=== PATIENT | female | born 1955 | race Caucasian/White ===

== ENCOUNTER 2017-06-26 12:14 | Emergency (ER) | payer BC ==
[~2017-06-26] VITALS: Ht 157.5 cm; Wt 61.0 kg
[2017-06-26] MEDS ORDERED: PROPARACAINE OPHTH 0.5%, 15ML RIGHTEYE ONE (13:00)
[2017-06-26] MEDS ORDERED: FLUORESCEIN OPHTHALMIC 1 MG STRIP EACHEYE ONE (13:00)
[2017-06-26] MEDS ORDERED: PLEASE ENTER ALLERGIES MC SCH ×2 (13:00)
[2017-06-26] MEDS ORDERED: PROPARACAINE OPHTH 0.5%, 15ML ONE (13:40)
[2017-06-26] MEDS ORDERED: FLUORESCEIN OPHTHALMIC 1 MG STRIP ONE (13:40)
[2017-06-26 14:20] LABS: HEMATOCRIT 43.7 % (34.6-47.8); HEMOGLOBIN 15.2 g/dL (11.7-16.4); WHITE BLOOD COUNT 6.4 x10^3/uL (3.4-10)
[2017-06-26] MEDS ORDERED: SODIUM CHLORIDE FLUSH 10ML SYR IVF ONE (14:30)
[2017-06-26 16:32] LABS: BLOOD UREA NITROGEN 9 mg/dL (7-18)
[2017-06-26] MEDS ORDERED: OMNIPAQUE 350 MG/ML, 100ML BOTTLE ONE (17:31)
[2017-06-26 20:50] VITALS: BP 146/87
== END 2017-06-26 20:52 | disposition home or self-care (01) ==
LOC: ED 15:12
DX: J39.2 Other diseases of pharynx (principal); R59.1 Generalized enlarged lymph nodes
CPT/HCPCS: 36415; 70487; 70491; 80048; 82040; 85025; 99285; Q9967

== ENCOUNTER 2017-07-04 07:37 | Inpatient (IN) | payer BC ==
[~2017-07-04] VITALS: Ht 157.5 cm; Wt 65.7 kg
[2017-07-04] MEDS ORDERED: HYDR-3237 PO (08:06)
[2017-07-04] MEDS ORDERED: LEVO112T4 PO (08:06)
[2017-07-04] MEDS ORDERED: LISI1TAB5 PO (08:06)
[2017-07-04] MEDS ORDERED: AMLO2.5T PO (08:06)
[2017-07-04] MEDS ORDERED: ONDA4TAB10 PO (08:06)
[2017-07-04 08:50] LABS: ASPARTATE AMINO TRANSFERASE 22 U/L (15-37); BLOOD UREA NITROGEN 9 mg/dL (7-18)
[2017-07-04 08:51] LABS: HEMATOCRIT 39.7 % (34.6-47.8); HEMOGLOBIN 14.2 g/dL (11.7-16.4); WHITE BLOOD COUNT 7.7 x10^3/uL (3.4-10)
[2017-07-04 09:04] LABS: IS PT STATUS REG ER OR PRE ER? YES
[2017-07-04 09:05] LABS: PATH.CAST-FLAG NOT PRESENT; SPERM-FLAG NOT PRESENT; XTAL-FLAG NOT PRESENT; YLC-FLAG NOT PRESENT
[2017-07-04] MEDS ORDERED: SODIUM CHLORIDE 0.9% 1,000 ML IV ONE ×2 (09:30→09:59)
[2017-07-04 09:55] LABS: SRC-FLAG NOT PRESENT
[2017-07-04] MEDS ORDERED: SODIUM CHLORIDE FLUSH 10ML SYR IVF PRN (10:00)
[2017-07-04] MEDS ORDERED: SODIUM CHLORIDE 0.9% 1,000 ML IV SCH (10:35)
[2017-07-04] MEDS ORDERED: POLYETHYLENE GLYCOL 17 GM PACKET PO PRN (11:00)
[2017-07-04] MEDS ORDERED: LABETALOL 5MG/ML, 20ML IVPush PRN (11:00)
[2017-07-04] MEDS ORDERED: ACETAMINOPHEN 325 MG TABLET PO PRN (11:00)
[2017-07-04] MEDS ORDERED: HYDROcodone/APAP 5/325 TABLET PO PRN (11:00)
[2017-07-04] MEDS ORDERED: TEMAZEPAM 15 MG CAPSULE PO PRN (11:00)
[2017-07-04] MEDS: ONDANSETRON 2MG/ML, 2ML IVPush PRN ×2 (14:22→20:47)
[2017-07-04] MEDS: ENOXAPARIN 40 MG/0.4 ML SQ SCH (16:42)
[2017-07-05] MEDS: SODIUM CHLORIDE 0.9% 1,000 ML IV SCH ×3 (03:45→22:30)
[2017-07-05 04:15] LABS: HEMATOCRIT 38.6 % (34.6-47.8); HEMOGLOBIN 13.3 g/dL (11.7-16.4); WHITE BLOOD COUNT 8.1 x10^3/uL (3.4-10)
[2017-07-05 04:26] LABS: BLOOD UREA NITROGEN 3 mg/dL (7-18)
[2017-07-05 04:27] LABS: ASPARTATE AMINO TRANSFERASE 18 U/L (15-37)
[2017-07-05] MEDS ORDERED: POTASSIUM CHLORIDE 20 MEQ TAB.ER.PRT PO ONE ×3 (05:00→13:30)
[2017-07-05] MEDS ORDERED: POTASSIUM CHLORIDE 20 MEQ in SODIUM CHLORIDE 0.9% 250 ML IV ONE (05:00)
[2017-07-05] MEDS: LEVOTHYROXINE 112 MCG TABLET PO SCH ×2 (08:15→08:46)
[2017-07-05] MEDS: SENNA/DOCUSATE TABLET PO SCH (08:15)
[2017-07-05] MEDS: AMLODIPINE 2.5 MG TABLET PO SCH (08:15)
[2017-07-05 08:25] LABS: BLOOD UREA NITROGEN 3 mg/dL (7-18)
[2017-07-05] MEDS ORDERED: POTASSIUM PHOSPHATE 44 MEQ in SODIUM CHLORIDE 0.9% 500 ML IV ONE (09:00)
[2017-07-05] MEDS ORDERED: MAGNESIUM SULFATE PMX 4GM/100M 100 ML IV ONE (09:00)
[2017-07-05] MEDS ORDERED: SODIUM CHLORIDE 0.9% 1,000 ML IV SCH ×2 (10:35)
[2017-07-05] MEDS: ENOXAPARIN 40 MG/0.4 ML SQ SCH (10:58)
[2017-07-05 12:25] LABS: BLOOD UREA NITROGEN 2 mg/dL (7-18)
[2017-07-05 16:22] LABS: BLOOD UREA NITROGEN 2 mg/dL (7-18)
[2017-07-05 20:34] LABS: BLOOD UREA NITROGEN 2 mg/dL (7-18)
[2017-07-06 00:30] LABS: BLOOD UREA NITROGEN 2 mg/dL (7-18)
[2017-07-06] MEDS: SODIUM CHLORIDE 0.9% 1,000 ML IV SCH ×3 (04:18→17:06)
[2017-07-06 04:45] LABS: BLOOD UREA NITROGEN 2 mg/dL (7-18)
[2017-07-06] MEDS ORDERED: POTASSIUM CHLORIDE 20 MEQ TAB.ER.PRT PO ONE (07:00)
[2017-07-06] MEDS: LEVOTHYROXINE 112 MCG TABLET PO SCH (08:13)
[2017-07-06] MEDS: SENNA/DOCUSATE TABLET PO SCH (08:13)
[2017-07-06 09:02] LABS: BLOOD UREA NITROGEN 2 mg/dL (7-18)
[2017-07-06] MEDS: AMLODIPINE 2.5 MG TABLET PO SCH (09:39)
[2017-07-06] MEDS: ENOXAPARIN 40 MG/0.4 ML SQ SCH (10:44)
[2017-07-06 11:05] VITALS: BP 150/97
[2017-07-06 13:10] LABS: BLOOD UREA NITROGEN 2 mg/dL (7-18)
[2017-07-06 14:47] VITALS: BP 160/94
[2017-07-06 18:20] VITALS: BP 149/100
[2017-07-06] MEDS: LISINOPRIL 20 MG TABLET PO SCH (18:22)
[2017-07-06 23:02] VITALS: BP 150/89
[2017-07-07] MEDS: SODIUM CHLORIDE 0.9% 1,000 ML IV SCH ×3 (00:53→14:53)
[2017-07-07 02:48] VITALS: BP 144/89
[2017-07-07 06:53] LABS: BLOOD UREA NITROGEN 4 mg/dL (7-18)
[2017-07-07 09:36] VITALS: BP 160/87
[2017-07-07] MEDS: AMLODIPINE 2.5 MG TABLET PO SCH (09:47)
[2017-07-07] MEDS: LISINOPRIL 20 MG TABLET PO SCH (09:47)
[2017-07-07] MEDS: LEVOTHYROXINE 112 MCG TABLET PO SCH (09:47)
[2017-07-07] MEDS: SENNA/DOCUSATE TABLET PO SCH (09:48)
[2017-07-07] MEDS: ENOXAPARIN 40 MG/0.4 ML SQ SCH (11:32)
[2017-07-07 14:57] VITALS: BP 150/96
[2017-07-07] MEDS ORDERED: POTASSIUM CHLORIDE 20 MEQ TAB.ER.PRT PO ONE (15:30)
[2017-07-07 19:09] VITALS: BP 154/98
[2017-07-08 03:52] VITALS: BP 150/89
[2017-07-08 04:36] LABS: HEMATOCRIT 39.2 % (34.6-47.8); HEMOGLOBIN 13.5 g/dL (11.7-16.4); WHITE BLOOD COUNT 6.7 x10^3/uL (3.4-10)
[2017-07-08 04:55] LABS: ASPARTATE AMINO TRANSFERASE 16 U/L (15-37); BLOOD UREA NITROGEN 4 mg/dL (7-18)
[2017-07-08 08:00] VITALS: BP 165/89
[2017-07-08] MEDS ORDERED: POTASSIUM CHLORIDE 20 MEQ TAB.ER.PRT PO ONE (08:00)
[2017-07-08] MEDS ORDERED: MAGNESIUM SULFATE PMX 2GM/50ML 50 ML IV ONE (08:00)
[2017-07-08] MEDS: SENNA/DOCUSATE TABLET PO SCH (09:00)
[2017-07-08] MEDS: LEVOTHYROXINE 112 MCG TABLET PO SCH (10:40)
[2017-07-08] MEDS: AMLODIPINE 2.5 MG TABLET PO SCH (10:40)
[2017-07-08] MEDS: LISINOPRIL 20 MG TABLET PO SCH (10:40)
[2017-07-08] MEDS ORDERED: AMLODIPINE 2.5 MG TABLET PO ONE (11:00)
[2017-07-08] MEDS: ENOXAPARIN 40 MG/0.4 ML SQ SCH (11:00)
[2017-07-08] MEDS ORDERED: LISI-170 PO (11:01)
[2017-07-08] MEDS ORDERED: AMLO2.5T PO (11:01)
[2017-07-08 12:42] VITALS: BP 161/98
[2017-07-09] MEDS ORDERED: AMLODIPINE 5 MG TABLET PO SCH (09:00)
== END 2017-07-08 18:14 | disposition home or self-care (01) | DRG 641 ==
LOC: ED 08:16 → EDIP 09:59 → CCU 12:19 → 3WST 07-06 10:55 → 3NW 07-07 18:32
PROVIDERS: ADMIT Internal Medicine; ATTEND Internal Medicine
DX: E86.0 Dehydration (principal); G12.21 Amyotrophic lateral sclerosis; E83.51 Hypocalcemia; E87.1 Hypo-osmolality and hyponatremia; E83.42 Hypomagnesemia; D49.7 Neoplasm of unspecified behavior of endocrine glands and other parts of nervous system; E03.9 Hypothyroidism, unspecified; E87.6 Hypokalemia; I10 Essential (primary) hypertension; F41.9 Anxiety disorder, unspecified; Z79.899 Other long term (current) drug therapy; Z82.0 Family history of epilepsy and other diseases of the nervous system
CPT/HCPCS: 36415; 70450; 71010; 74230; 80048; 80051; 80053; 81001; 82330; 82533; 83735; 83880; 83930; 84100; 84295; 84439; 84443; 84478; 84484; 84550; 85025; 87081; 93005; J1650; J2405; J3480; J3475; J7030; J7040; J7050

== ENCOUNTER 2017-07-19 16:37 | Inpatient (IN) | payer BC ==
[~2017-07-19] VITALS: Ht 157.5 cm; Wt 62.4 kg
[~2017-07-19 16:37] MED LIST: AMLO2.5T PO; HYDR-3237 PO; LEVO112T4 PO; LISI-170 PO; LISI1TAB5 PO; ONDA4TAB10 PO
[2017-07-19] MEDS ORDERED: SODIUM CHLORIDE FLUSH 10ML SYR IVF ONE ×2 (17:00→18:00)
[2017-07-19 17:16] LABS: HEMATOCRIT 44.2 % (34.6-47.8); HEMOGLOBIN 15.4 g/dL (11.7-16.4); WHITE BLOOD COUNT 9.6 x10^3/uL (3.4-10)
[2017-07-19 17:26] LABS: ASPARTATE AMINO TRANSFERASE 22 U/L (15-37); BLOOD UREA NITROGEN 9 mg/dL (7-18)
[2017-07-19] MEDS ORDERED: SODIUM CHLORIDE 0.9% 1,000ML IVBOLUS ONE (18:00)
[2017-07-19] MEDS ORDERED: POTASSIUM CHLORIDE 20 MEQ TAB.ER.PRT PO ONE (18:00)
[2017-07-19] MEDS ORDERED: POTASSIUM CHLORIDE 20 MEQ TAB.ER.PRT ONE (18:06)
[2017-07-19] MEDS ORDERED: BISACODYL 10 MG SUPP PR PRN (19:30)
[2017-07-19] MEDS ORDERED: ENALAPRILAT 1.25 MG/ML, 2ML IVPush PRN (19:30)
[2017-07-19] MEDS ORDERED: ONDANSETRON 2MG/ML, 2ML IVPush PRN (19:30)
[2017-07-19] MEDS ORDERED: ACETAMINOPHEN 325 MG TABLET PO PRN (19:30)
[2017-07-19] MEDS ORDERED: TEMAZEPAM 15 MG CAPSULE PO PRN (19:30)
[2017-07-19 20:11] LABS: BLOOD UREA NITROGEN 7 mg/dL (7-18)
[2017-07-19] MEDS: SODIUM CHLORIDE 0.9% 1,000 ML IV SCH (20:51)
[2017-07-19 21:05] VITALS: BP 144/89
[2017-07-19 23:33] LABS: POTASSIUM,URINE RANDOM 21 mmol/L
[2017-07-20 01:18] LABS: BLOOD UREA NITROGEN 6 mg/dL (7-18)
[2017-07-20 01:23] VITALS: BP 143/83
[2017-07-20 04:44] LABS: HEMATOCRIT 39.8 % (34.6-47.8); WHITE BLOOD COUNT 7.7 x10^3/uL (3.4-10)
[2017-07-20 04:57] LABS: BLOOD UREA NITROGEN 4 mg/dL (7-18)
[2017-07-20] MEDS: SODIUM CHLORIDE 0.9% 1,000 ML IV SCH (05:09)
[2017-07-20] MEDS: LEVOTHYROXINE 112 MCG TABLET PO SCH (05:10)
[2017-07-20 07:33] VITALS: BP 137/76
[2017-07-20] MEDS ORDERED: MAGNESIUM SULFATE PMX 2GM/50ML 50 ML IV ONE (09:00)
[2017-07-20] MEDS ORDERED: POTASSIUM CHLORIDE 10% 40 MEQ/30 ML UDC PO ONE (09:14)
[2017-07-20] MEDS ORDERED: POTASSIUM CHLORIDE 20 MEQ TAB.ER.PRT PO ONE ×2 (09:30→16:00)
[2017-07-20 09:51] LABS: BLOOD UREA NITROGEN 3 mg/dL (7-18)
[2017-07-20] MEDS: LISINOPRIL 20 MG TABLET PO SCH (10:08)
[2017-07-20] MEDS: AMLODIPINE 2.5 MG TABLET PO SCH (10:08)
[2017-07-20 11:11] VITALS: BP 152/87
[2017-07-20] MEDS ORDERED: CALCIUM GLUCONATE 4.6 MEQ in SODIUM CHLORIDE 0.9% 50 ML IV ONE (11:30)
[2017-07-20 13:17] LABS: BLOOD UREA NITROGEN 3 mg/dL (7-18)
[2017-07-20] MEDS: SODIUM CHLORIDE 3% 500 ML IV SCH (13:51)
[2017-07-20 15:10] VITALS: BP 144/82
[2017-07-20 17:27] LABS: BLOOD UREA NITROGEN 3 mg/dL (7-18)
[2017-07-20 19:54] LABS: POTASSIUM,URINE RANDOM 51 mmol/L
[2017-07-20 21:20] LABS: BLOOD UREA NITROGEN 5 mg/dL (7-18)
[2017-07-20] MEDS: PHENAZOPYRIDINE 200 MG TABLET PO SCH (21:44)
[2017-07-20] MEDS: CEFTRIAXONE PMX 1GM/50ML 50 ML IV SCH (21:45)
[2017-07-21 01:26] LABS: BLOOD UREA NITROGEN 4 mg/dL (7-18)
[2017-07-21 04:00] VITALS: BP 120/69
[2017-07-21 05:45] LABS: HEMATOCRIT 39.4 % (34.6-47.8); HEMOGLOBIN 13.7 g/dL (11.7-16.4); WHITE BLOOD COUNT 8.6 x10^3/uL (3.4-10)
[2017-07-21 05:56] LABS: BLOOD UREA NITROGEN 5 mg/dL (7-18)
[2017-07-21] MEDS: LEVOTHYROXINE 112 MCG TABLET PO SCH (06:00)
[2017-07-21 09:14] LABS: BLOOD UREA NITROGEN 4 mg/dL (7-18)
[2017-07-21] MEDS: PHENAZOPYRIDINE 200 MG TABLET PO SCH ×3 (09:22→21:35)
[2017-07-21] MEDS: AMLODIPINE 2.5 MG TABLET PO SCH (09:22)
[2017-07-21] MEDS: LISINOPRIL 20 MG TABLET PO SCH (09:22)
[2017-07-21] MEDS: SODIUM CHLORIDE 3% 500 ML IV SCH (09:23)
[2017-07-21 13:35] LABS: BLOOD UREA NITROGEN 6 mg/dL (7-18)
[2017-07-21 20:09] LABS: BLOOD UREA NITROGEN 8 mg/dL (7-18)
[2017-07-21] MEDS: CEFTRIAXONE PMX 1GM/50ML 50 ML IV SCH (21:36)
[2017-07-22 02:49] LABS: CREATININE CLEARANCE,URINE 145.2 (70.0-140.0)
[2017-07-22 03:55] VITALS: BP 106/69
[2017-07-22 05:30] LABS: HEMATOCRIT 37.8 % (34.6-47.8); HEMOGLOBIN 12.9 g/dL (11.7-16.4); WHITE BLOOD COUNT 6.6 x10^3/uL (3.4-10)
[2017-07-22 05:54] LABS: BLOOD UREA NITROGEN 7 mg/dL (7-18)
[2017-07-22] MEDS: LEVOTHYROXINE 112 MCG TABLET PO SCH (06:01)
[2017-07-22 07:00] VITALS: BP 140/80
[2017-07-22] MEDS ORDERED: LIDOCAINE 2%, 20ML ONE (12:13)
[2017-07-22 12:27] LABS: BLOOD UREA NITROGEN 5 mg/dL (7-18)
[2017-07-22 13:17] VITALS: BP 157/88
[2017-07-22] MEDS: PHENAZOPYRIDINE 200 MG TABLET PO SCH ×3 (13:42→20:26)
[2017-07-22] MEDS: LISINOPRIL 20 MG TABLET PO SCH (13:43)
[2017-07-22] MEDS: AMLODIPINE 2.5 MG TABLET PO SCH (13:43)
[2017-07-22] MEDS ORDERED: POTASSIUM CHLORIDE 20 MEQ TAB.ER.PRT PO ONE ×2 (14:30→17:30)
[2017-07-22 20:06] VITALS: BP 137/85
[2017-07-22 20:25] LABS: BLOOD UREA NITROGEN 9 mg/dL (7-18)
[2017-07-22] MEDS: CEFTRIAXONE PMX 1GM/50ML 50 ML IV SCH (20:26)
[2017-07-23 03:36] VITALS: BP 123/83
[2017-07-23 04:30] LABS: HEMATOCRIT 39.3 % (34.6-47.8); HEMOGLOBIN 13.4 g/dL (11.7-16.4); WHITE BLOOD COUNT 7.4 x10^3/uL (3.4-10)
[2017-07-23 04:39] LABS: BLOOD UREA NITROGEN 7 mg/dL (7-18)
[2017-07-23] MEDS: LEVOTHYROXINE 112 MCG TABLET PO SCH (05:32)
[2017-07-23 06:38] VITALS: BP 137/86
[2017-07-23] MEDS: AMLODIPINE 2.5 MG TABLET PO SCH (08:57)
[2017-07-23] MEDS: LISINOPRIL 20 MG TABLET PO SCH (08:58)
[2017-07-23] MEDS: PHENAZOPYRIDINE 200 MG TABLET PO SCH ×3 (08:58→19:39)
[2017-07-23 12:15] VITALS: BP 134/85
[2017-07-23 15:47] LABS: BLOOD UREA NITROGEN 9 mg/dL (7-18)
[2017-07-23 18:59] VITALS: BP 123/84
[2017-07-23] MEDS: CEFTRIAXONE PMX 1GM/50ML 50 ML IV SCH (19:39)
[2017-07-24 04:52] VITALS: BP 119/79
[2017-07-24 05:08] LABS: HEMATOCRIT 39.8 % (34.6-47.8); HEMOGLOBIN 13.7 g/dL (11.7-16.4); WHITE BLOOD COUNT 8.2 x10^3/uL (3.4-10)
[2017-07-24 05:19] LABS: BLOOD UREA NITROGEN 9 mg/dL (7-18)
[2017-07-24] MEDS: LEVOTHYROXINE 112 MCG TABLET PO SCH (05:29)
[2017-07-24 06:42] VITALS: BP 119/79
[2017-07-24] MEDS: LISINOPRIL 20 MG TABLET PO SCH (10:18)
[2017-07-24] MEDS: PHENAZOPYRIDINE 200 MG TABLET PO SCH ×3 (10:19→20:14)
[2017-07-24] MEDS: AMLODIPINE 2.5 MG TABLET PO SCH (10:19)
[2017-07-24 12:15] VITALS: BP 124/87
[2017-07-24 19:13] VITALS: BP 126/84
[2017-07-24] MEDS: CEFTRIAXONE PMX 1GM/50ML 50 ML IV SCH (20:14)
[2017-07-24] MEDS ORDERED: ONDANSETRON 2MG/ML, 2ML IVPush PRN (21:00)
[2017-07-24] MEDS ORDERED: TEMAZEPAM 15 MG CAPSULE PO PRN (21:00)
[2017-07-24] MEDS ORDERED: ACETAMINOPHEN 325 MG TABLET PO PRN (21:00)
[2017-07-24] MEDS ORDERED: ENALAPRILAT 1.25 MG/ML, 2ML IVPush PRN (21:00)
[2017-07-25 03:52] VITALS: BP 114/79
[2017-07-25 05:31] LABS: BLOOD UREA NITROGEN 18 mg/dL (7-18)
[2017-07-25 05:35] LABS: ASPARTATE AMINO TRANSFERASE 13 U/L (15-37)
[2017-07-25] MEDS: LEVOTHYROXINE 112 MCG TABLET PO SCH (06:25)
[2017-07-25 07:02] VITALS: BP 110/76
[2017-07-25] MEDS: AMLODIPINE 2.5 MG TABLET PO SCH (10:07)
[2017-07-25] MEDS: PHENAZOPYRIDINE 200 MG TABLET PO SCH (10:07)
[2017-07-25] MEDS: LISINOPRIL 20 MG TABLET PO SCH (10:07)
[2017-07-25 13:36] VITALS: BP 109/71
== END 2017-07-25 15:29 | disposition home or self-care (01) | DRG 629 ==
LOC: ED 17:18 → EDIP 17:45 → 3NW 19:25 → 4WST 07-20 10:44 → CCU 07-20 13:27 → 3NW 07-21 23:52
PROVIDERS: ADMIT Family Medicine; ATTEND Family Medicine
PROC: 07B13ZX Excision of Right Neck Lymphatic, Percutaneous Approach, Diagnostic (ICD-10-PCS; principal; 2017-07-22)
DX: E22.2 Syndrome of inappropriate secretion of antidiuretic hormone (principal); G12.21 Amyotrophic lateral sclerosis; E44.1 Mild protein-calorie malnutrition; N39.0 Urinary tract infection, site not specified; D75.89 Other specified diseases of blood and blood-forming organs; E83.51 Hypocalcemia; E03.9 Hypothyroidism, unspecified; E86.0 Dehydration; E87.6 Hypokalemia; I10 Essential (primary) hypertension; K59.00 Constipation, unspecified; Z66 Do not resuscitate; Z82.0 Family history of epilepsy and other diseases of the nervous system; Z68.25 Body mass index [BMI] 25.0-25.9, adult
CPT/HCPCS: 36415; 38505; 76700; 76942; 80048; 80053; 81001; 82040; 82436; 82570; 82575; 83690; 83735; 83930; 83935; 84133; 84300; 84439; 84443; 85025; 87077; 87081; 87086; 87186; J0610; J0696; J3490; J3475; J7030